=== PATIENT | male | born 1995 | race Caucasian/White ===

== ENCOUNTER 2017-01-15 18:40 | Observation (INO) | payer OTHER, BC ==
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
[2017-01-15 19:16] LABS: CHLORIDE,CL 98 mmol/L (98-115); SODIUM,NA 137 mmol/L (136-145)
[2017-01-15] MEDS ORDERED: Sodium Chloride 0.9% 5 ML Syringe FLUSH PRN (20:35)
[2017-01-15] MEDS ORDERED: Sodium Chloride 0.9% 1,000 ML IV ONE (21:09)
[2017-01-15] MEDS ORDERED: Sodium Chloride 0.9% 1,000 ML ONE (21:10)
[2017-01-15] MEDS ORDERED: Acetaminophen 325 MG Tab PO PRN (21:51)
[2017-01-15] MEDS ORDERED: Ondansetron 4 MG in Sodium Chloride 0.9% 50 ML IV PRN (21:51)
[2017-01-15] MEDS: Sodium Chloride 0.9% 1,000 ML IV SCH (22:15)
[2017-01-16] MEDS: Sodium Chloride 0.9% 1,000 ML IV SCH (07:12)
[2017-01-16 11:26] VITALS: BP 118/65
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
== END 2017-01-16 16:21 | disposition home or self-care (01) ==
LOC: KA.ED 18:40 → SUPCPDRO 18:40 → KA.MS 21:49
PROVIDERS: ADMIT Physician Assistant Surgical; ATTEND Internal Medicine
DX: F10.120 Alcohol abuse with intoxication, uncomplicated (principal); Z88.0 Allergy status to penicillin; Z79.899 Other long term (current) drug therapy; Z98.890 Other specified postprocedural states; F17.210 Nicotine dependence, cigarettes, uncomplicated; V48.0XXA Car driver injured in noncollision transport accident in nontraffic accident, initial encounter
CPT/HCPCS: 36415; 70450; 71010; 72125; 72170; 74177; 80048; 80305; 81001; 85025; 96360; 96361; 99285; A9270; G0378; G0480; J7030